=== PATIENT | female | born 1975 | race Two or more races ===

== ENCOUNTER 2023-12-13 01:07 | Emergency (ER) | payer BC ==
[~2023-12-13] VITALS: Ht 160 cm; Wt 65.3 kg
[2023-12-13] MEDS ORDERED: CYCLOBENZAPRINE 10 MG TABLET PO ONE (02:00)
[2023-12-13] MEDS ORDERED: ACETAMINOPHEN ES 500 MG TABLET PO ONE (02:00)
[2023-12-13] MEDS ORDERED: IBUPROFEN 400 MG TABLET PO ONE (02:00)
[2023-12-13] MEDS ORDERED: ACETAMINOPHEN ES 500 MG TABLET ONE (02:20)
[2023-12-13] MEDS ORDERED: IBUPROFEN 400 MG TABLET ONE (02:21)
[2023-12-13] MEDS ORDERED: CYCLOBENZAPRINE 10 MG TABLET ONE (02:21)
[2023-12-13] MEDS ORDERED: CYCL5TAB PO (03:48)
[2023-12-13 04:18] VITALS: BP 135/72; TEMP 98.2; O2SAT 97
== END 2023-12-13 04:00 | disposition home or self-care (01) ==
LOC: ER 01:24
DX: S13.4XXA Sprain of ligaments of cervical spine, initial encounter (principal); S40.012A Contusion of left shoulder, initial encounter; Z79.899 Other long term (current) drug therapy; V89.2XXA Person injured in unspecified motor-vehicle accident, traffic, initial encounter; Y93.89 Activity, other specified; Y92.89 Other specified places as the place of occurrence of the external cause; Y99.8 Other external cause status
CPT/HCPCS: 73030-TC